=== PATIENT | male | born 1965 | race African-American/Black ===

== ENCOUNTER 2016-11-07 21:24 | Emergency (ER) | payer OTHER ==
[~2016-11-07] VITALS: Ht 175.3 cm; Wt 88.5 kg
--- NOTE | 2016-11-07 22:10 | REPUSA ---
CT of the head Clinical history: trauma. Technique: Multiple axial CT images were obtained through the head without administration of contrast . Comparison: None. Findings: The ventricles and sulci are symmetric bilaterally. There is no evidence of acute hemorrhag e or infarct. There is no midline shift, mass effect, or extra-axial fluid collection. The osseous st ructures are unremarkable. There is diffuse fluid opacification of the right ethmoid sinuses. The oth er visualized paranasal sinuses and mastoid air cells are clear. Impression: 1. No acute intracranial hemorrhage or infarct. 2. Right-sided ethmoid sinusitis.
[2016-11-07] MEDS ORDERED: HYDROmorphone HCL 1 MG/ML SYRINGE (J1170) IM ONE ×2 (22:30→23:30)
[2016-11-07 23:29] VITALS: BP 122/78
--- NOTE | 2016-11-08 01:15 | REP ---
Clinical: Trauma. Technique: AP, lateral, bilateral oblique views of the right hand. Findings: There is a comminuted fracture at the base of the fifth metacarpal bone. Subtle fracture involving the base of the fourth metacarpal bone cannot be excluded as well. Overlying soft tissue swelling is appreciated. No subcutaneous emphysema or radiodense foreign body. Impression: Closed comminuted fracture at the base of the fifth metacarpal bone and possible fracture at the base of the fourth metacarpal bone. Signed by Blair Harley MD 11/08/2016 01:06 A
== END 2016-11-08 00:09 | disposition home or self-care (01) ==
LOC: M ED 22:19
DX: S62.346A Nondisplaced fracture of base of fifth metacarpal bone, right hand, initial encounter for closed fracture (principal); S00.93XA Contusion of unspecified part of head, initial encounter; W22.8XXA Striking against or struck by other objects, initial encounter; Y92.099 Unspecified place in other non-institutional residence as the place of occurrence of the external cause; Y93.89 Activity, other specified; Y99.8 Other external cause status; I10 Essential (primary) hypertension; N40.0 Benign prostatic hyperplasia without lower urinary tract symptoms; F17.200 Nicotine dependence, unspecified, uncomplicated; Z88.0 Allergy status to penicillin
CPT/HCPCS: 70450; 73130; 96372; 99282; J1170